=== PATIENT | male | born 1970 | race Caucasian/White ===

== ENCOUNTER 2017-09-11 22:19 | Inpatient (IN) | payer SELFPAY ==
[~2017-09-11] VITALS: Ht 175.3 cm; Wt 95.0 kg
[2017-09-11 22:21] VITALS: O2SAT 98
[2017-09-11 22:46] LABS: AUTOMATED NEUTROPHIL # 2.7 TH/MM3 (1.8-7.7); BASOPHIL % 0.5 % (0.0-2.0); EOSINOPHIL # 0.1 TH/MM3 (0-0.4); EOSINOPHIL % 1.6 % (0.0-4.0); HEMATOCRIT 42.2 % (39.0-51.0); HEMOGLOBIN 14.7 GM/DL (13.0-17.0); LYMPH % 53.4 % (9.0-44.0); MEAN CORPUSCULAR HEMOGLOBIN 33.1 PG (27.0-34.0); MEAN CORPUSCULAR HGB CONC 34.8 % (32.0-36.0); MEAN PLATELET VOLUME 9.3 FL (7.0-11.0); MONO % 8.6 % (0.0-8.0); MONOCYTE # 0.7 TH/MM3 (0-0.9); NEUT % 35.9 % (16.0-70.0); PLATELET COUNT 131 TH/MM3 (150-450); RED BLOOD COUNT 4.44 MIL/MM3 (4.50-5.90); RED CELL DISTRIBUTION WIDTH 12.9 % (11.6-17.2); WHITE BLOOD COUNT 7.5 TH/MM3 (4.0-11.0)
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
[2017-09-11 22:50] LABS: PROTHROMBIN TIME - PATIENT 10.4 SEC (9.8-11.6)
[2017-09-11] MEDS ORDERED: IOHEXOL 350 MG/ML 10 ML VIAL (for RAD DIAG) IVCONTRAST ONE (22:52)
[2017-09-11 23:05] VITALS: BP 127/70; PULSE 80; RESP 18; TEMP 98.1; O2SAT 100
--- NOTE | 2017-09-11 23:09 | PD ---
HPI Chief Complaint: Trauma (Alert) Time Seen by Provider: 22:25 Allergies-Medications (Allergen,Severity, Reaction): Coded Allergies: No Known Allergies (Verified Allergy, Unknown, 09/11/17) Reported Meds & Prescriptions Reported Meds & Active Scripts Active No Active Prescriptions or Reported Medications Data Data Last Documented VS Vital Signs Date Time Temp Pulse Resp B/P (MAP) Pulse Ox O2 Delivery O2 Flow Rate FiO2 09/11/17 23:05 100 Nasal Cannula 2.00 09/11/17 23:05 98.1 80 18 127/70 (89) Orders Orders I-Stat Profile (09/11/17 22:25) Complete Blood Count With Diff (09/11/17 22:25) Prothrombin Time / Inr (Pt) (09/11/17 22:25) Act Partial Throm Time (Ptt) (09/11/17 22:25) Type And Screen (09/11/17 22:25) Chest, Single Ap (09/11/17 22:25) Ct Thorax/ Chest W Iv Contrast (09/11/17 22:25) Iv Access Insert/Monitor (09/11/17 22:25) Ecg Monitoring (09/11/17 22:25) Oximetry (09/11/17 22:25) Oxygen Administration (09/11/17 22:25) Ed Poc Ultrasound (09/11/17 22:25) Iohexol 350 Inj (Omnipaque 350 Inj) (09/11/17 22:52) Admit Order (Ed Use Only) (09/11/17 ) Labs Laboratory Tests Test 09/11/17 22:25 White Blood Count 7.5 TH/MM3 Red Blood Count 4.44 MIL/MM3 Hemoglobin 14.7 GM/DL Bedside Hemoglobin 13.9 G/DL Hematocrit 42.2 % Bedside Hematocrit 41.0 % Mean Corpuscular Volume 95.0 FL Mean Corpuscular Hemoglobin 33.1 PG Mean Corpuscular Hemoglobin Concent 34.8 % Red Cell Distribution Width 12.9 % Platelet Count 131 TH/MM3 Mean Platelet Volume 9.3 FL Neutrophils (%) (Auto) 35.9 % Lymphocytes (%) (Auto) 53.4 % Monocytes (%) (Auto) 8.6 % Eosinophils (%) (Auto) 1.6 % Basophils (%) (Auto) 0.5 % Neutrophils # (Auto) 2.7 TH/MM3 Lymphocytes # (Auto) 4.0 TH/MM3 Monocytes # (Auto) 0.7 TH/MM3 Eosinophils # (Auto) 0.1 TH/MM3 Basophils # (Auto) 0.0 TH/MM3 CBC Comment DIFF FINAL Differential Comment Prothrombin Time 10.4 SEC Prothromb Time International Ratio 1.0 RATIO Activated Partial Thromboplast Time 22.1 SEC Bedside Sodium 142 MMOL/L Bedside Potassium 3.2 MMOL/L Bedside Chloride 102 MMOL/L Bedside Blood Urea Nitrogen 14 MG/DL Bedside Creatinine 1.1 MG/DL Bedside Glucose 112 MG/DL MDM Scripts No Active Prescriptions or Reported Meds Jaswinder Tejeda MD Sep 11, 2017 23:09
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
[2017-09-11] MEDS ORDERED: SODIUM CHLORIDE 0.9% FLUSH 10 ML FLUSH IV FLUSH PRN (23:15)
[2017-09-11] MEDS ORDERED: Post-op Orders (for Pharmacy) XX ONE (23:15)
[2017-09-11] MEDS ORDERED: ONDANSETRON HCL 4 MG/2 ML VIAL IV PUSH PRN (23:15)
[2017-09-11] MEDS ORDERED: NALOXONE HCL 0.4 MG/ML AMP IV PUSH PRN (23:15)
[2017-09-11] MEDS ORDERED: oxyCODONE/ACETAMINOPHEN 5 MG/325 MG TAB PO PRN (23:15)
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
[2017-09-12] MEDS: SODIUM CHLOR 0.9% 1000 ML INJ 1,000 ML IV SCH ×2 (00:45→09:08)
[2017-09-12 00:58] VITALS: BP 116/66; PULSE 67; RESP 18; TEMP 96.4; O2SAT 92
[2017-09-12 04:13] VITALS: BP 123/62; PULSE 62; RESP 19; TEMP 97.1; O2SAT 96
[2017-09-12] MEDS ORDERED: COLA100C5 PO (07:13)
[2017-09-12 08:00] VITALS: BP 131/59; PULSE 71; RESP 19; TEMP 96.9; O2SAT 93
[2017-09-12] MEDS ORDERED: SODIUM CHLORIDE 0.9% FLUSH 10 ML FLUSH IV FLUSH SCH (09:00)
[2017-09-12 09:41] VITALS: O2SAT 96
[2017-09-12] MEDS ORDERED: TYLE325T PO (11:07)
[2017-09-12] MEDS ORDERED: IBUP-232 PO (11:07)
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
== END 2017-09-12 12:22 | disposition home or self-care (01) | DRG 605 ==
LOC: NEPI 22:19 → NEDA 23:09 → OBSVTOIN 23:13 → EDBD 23:13 → N06B 09-12 00:31
PROVIDERS: ADMIT Surgery; ATTEND Surgery
PROC: 3E0F7GC Introduction of Other Therapeutic Substance into Respiratory Tract, Via Natural or Artificial Opening (ICD-10-PCS; principal; 2017-09-11)
DX: S21.111A Laceration without foreign body of right front wall of thorax without penetration into thoracic cavity, initial encounter (principal); S10.93XA Contusion of unspecified part of neck, initial encounter; Y93.9 Activity, unspecified; Z72.0 Tobacco use; X99.9XXA Assault by unspecified sharp object, initial encounter
CPT/HCPCS: 71045; 71260; 80048; 85025; 85610; 85730; 86850; 86900; 86901; 94150; J7030; Q9967

== ENCOUNTER 2017-10-28 13:00 | Emergency (ER) | payer SELFPAY ==
[~2017-10-28 13:00] MED LIST: COLA100C5 PO; IBUP-232 PO; TYLE325T PO
[2017-10-28 13:25] VITALS: BP 170/100; PULSE 94; RESP 16; TEMP 97.9; O2SAT 95
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
[2017-10-28] MEDS ORDERED: GABA300C5 PO (16:00)
== END 2017-10-28 16:11 | disposition home or self-care (01) ==
LOC: NED 13:00 → NEPK 16:11
DX: M79.644 Pain in right finger(s) (principal); R20.2 Paresthesia of skin
CPT/HCPCS: 99283

== ENCOUNTER 2017-12-12 06:56 | Emergency (ER) | payer SELFPAY ==
[~2017-12-12] VITALS: Ht 175.3 cm; Wt 93.0 kg
[~2017-12-12 06:56] MED LIST changes: +GABA300C5 PO
[2017-12-12 07:09] VITALS: BP 131/81; PULSE 73; RESP 17; TEMP 97.7; O2SAT 96
[2017-12-12 07:20] VITALS: BP 154/88; PULSE 63; RESP 15; O2SAT 96
[2017-12-12] MEDS ORDERED: SODIUM CHLOR 0.9% 1000 ML INJ 1,000 ML IV ONE (07:34)
--- NOTE | 2017-12-12 07:39 | PD ---
HPI Chief Complaint: Neuro Symptoms/ Deficits Time Seen by Provider: 07:34 Travel History International Travel<30 days: No Contact w/Intl Traveler<30days: No Traveled to known affect area: No History of Present Illness HPI 47-year-old male patient presents to the ER today because over the last week he has noticed that he has a halo in his vision, feels like he almost has tunnel vision, and feels like he has difficulty seeing the middle peoples faces, states that this morning when he was driving to work he felt like he had a little numbness in his left upper lip area, felt like he was drooling. He denies any numbness or weakness otherwise, no trouble walking or talking, no trouble driving in the morning. He states that he has noticed the symptoms on and off but feels like the symptoms are more consistent this morning. He states he has had intermittent headaches but denies any current headache. Modifying Factors: None Associated Signs & Symptoms: Left upper lip paresthesias, halo in the vision, feels like he has tunnel vision Risk Factors: None PFSH Past Medical History Cancer: No Cardiovascular Problems: No Genitourinary: No Implanted Vascular Access Dvce: No Medical other: Yes (thrombophlebitis SEP 2017) Musculoskeletal: No Neurologic: No Reproductive: No Respiratory: No Migraines: Yes (with high iron) Past Surgical History Surgical History: No Previous Surgery Other Surgery: No Social History Alcohol Use: Yes (daily-beer) Tobacco Use: Yes Substance Use: No Allergies-Medications (Allergen,Severity, Reaction): Coded Allergies: No Known Allergies (Verified Allergy, Unknown, 12/12/17) Reported Meds & Prescriptions Reported Meds & Active Scripts Active No Active Prescriptions or Reported Medications Review of Systems Except as stated in HPI: all other systems reviewed are Neg Physical Exam Narrative GENERAL: Well-developed middle-age male patient currently in mild distress. Awake and oriented 3. SKIN: Focused skin assessment warm/dry. HEAD: Atraumatic. Normocephalic. EYES: Pupils are equal and round, reactive to light bilaterally. No scleral icterus. No injection or drainage. Extraocular movements are intact. ENT: No nasal bleeding or discharge. Mucous membranes pink and moist. NECK: Trachea midline. No JVD. Supple. CARDIOVASCULAR: Regular rate and rhythm. No murmur appreciated. RESPIRATORY: No accessory muscle use. Clear to auscultation. Breath sounds equal bilaterally. GASTROINTESTINAL: Abdomen soft, non-tender, nondistended. Hepatic and splenic margins not palpable. MUSCULOSKELETAL: No obvious deformities. No clubbing. No cyanosis. No edema. NEUROLOGICAL: Awake and alert. No obvious cranial nerve deficits. Motor grossly within normal limits. Normal speech. No pronator drift. PSYCHIATRIC: Appropriate mood and affect; insight and judgment normal. Data Data Last Documented VS Vital Signs Date Time Temp Pulse Resp B/P (MAP) Pulse Ox O2 Delivery O2 Flow Rate FiO2 12/12/17 09:19 64 18 152/70 (97) 97 Room Air 12/12/17 07:09 97.7 Orders Orders Complete Blood Count With Diff (12/12/17 07:34) Comprehensive Metabolic Panel (12/12/17 07:34) Ct Brain W/O Iv Contrast(Rout) (12/12/17 07:34) Ecg Monitoring (12/12/17 07:34) Iv Access Insert/Monitor (12/12/17 07:34) Oximetry (12/12/17 07:34) Sodium Chloride 0.9% Flush (Ns Flush) (12/12/17 07:45) Sodium Chlor 0.9% 1000 Ml Inj (Ns 1000 M (12/12/17 07:34) Mri Brain W&W/O Contrast (12/12/17 08:26) Gadodiamide Pf Inj (Omniscan Pf Inj) (12/12/17 10:11) Ed Discharge Order (12/12/17 10:16) Labs Laboratory Tests Test 12/12/17 07:40 White Blood Count 6.1 TH/MM3 Red Blood Count 5.30 MIL/MM3 Hemoglobin 17.5 GM/DL Hematocrit 50.1 % Mean Corpuscular Volume 94.5 FL Mean Corpuscular Hemoglobin 33.1 PG Mean Corpuscular Hemoglobin Concent 35.0 % Red Cell Distribution Width 12.3 % Platelet Count 150 TH/MM3 Mean Platelet Volume 10.0 FL Neutrophils (%) (Auto) 47.8 % Lymphocytes (%) (Auto) 41.5 % Monocytes (%) (Auto) 7.7 % Eosinophils (%) (Auto) 2.4 % Basophils (%) (Auto) 0.6 % Neutrophils # (Auto) 2.9 TH/MM3 Lymphocytes # (Auto) 2.5 TH/MM3 Monocytes # (Auto) 0.5 TH/MM3 Eosinophils # (Auto) 0.1 TH/MM3 Basophils # (Auto) 0.0 TH/MM3 CBC Comment DIFF FINAL Differential Comment Blood Urea Nitrogen 9 MG/DL Creatinine 1.18 MG/DL Random Glucose 186 MG/DL Total Protein 7.2 GM/DL Albumin 3.9 GM/DL Calcium Level 8.5 MG/DL Alkaline Phosphatase 69 U/L Aspartate Amino Transf (AST/SGOT) 22 U/L Alanine Aminotransferase (ALT/SGPT) 37 U/L Total Bilirubin 0.4 MG/DL Sodium Level 142 MEQ/L Potassium Level 3.7 MEQ/L Chloride Level 104 MEQ/L Carbon Dioxide Level 27.5 MEQ/L Anion Gap 11 MEQ/L Estimat Glomerular Filtration Rate 66 ML/MIN [facility] Medical Decision Making Medical Screen Exam Complete: Yes Emergency Medical Condition: Yes Medical Record Reviewed: Yes Interpretation(s) Laboratory Tests Test 12/12/17 07:40 Hemoglobin 17.5 GM/DL (13.0-17.0) Random Glucose 186 MG/DL (74-106) Estimat Glomerular Filtration Rate 66 ML/MIN (>89) Last 24 hours Impressions Brain MRI 12/12/17 0826 Signed Impressions: Service Date/Time: Tuesday, December 12, 2017 09:23 - CONCLUSION: Minimal periventricular white matter changes that could be evidence for demyelinating process. No parenchymal hemorrhage or acute infarction. Sai Stephen MD FACR Head CT 12/12/17 0734 Signed Impressions: Service Date/Time: Tuesday, December 12, 2017 07:52 - CONCLUSION: No acute intracranial abnormality is identified. Jv Lion MD Differential Diagnosis Atypical migraine headache versus CVA versus acute intracranial processes versus anxiety Narrative Course Lab work is fairly unremarkable. He has no meningeal signs. I do not see obvious focal neurological deficits in the ER. However, considering his symptoms, CAT scan was ordered for further evaluation, did not see any obvious signs of CVA or masses. I have discussed the case with radiologist regarding further evaluation of the area of the optic chiasm and he states that the patient can get a regular MRI with and without contrast for initial evaluation. The MRI did not show any signs of other acute processes at this point. On reevaluation at 10 AM, patient is resting comfortably, and when he wakes up, states that his symptoms are subsiding. At this point, he also asked me if getting stressed out could be a cause, he states that he has been more stressed recently. It is possible that stress could be contributing. At this point, I do not see any signs of focal deficits and my plan would be to release him with close follow-up to primary care doctor. Return for worsening in symptoms as necessary. The plan has been discussed with him he states understanding. Diagnosis Primary Impression: Tunnel vision Additional Impression: Facial paresthesia Scripts No Active Prescriptions or Reported Meds Disposition: 01 DISCHARGE HOME Condition: Stable Torin Willoughby MD December 12, 2017 07:39
[2017-12-12] MEDS ORDERED: SODIUM CHLORIDE 0.9% FLUSH 10 ML FLUSH IVF PRN (07:45)
[2017-12-12 07:46] VITALS: O2SAT 96
[2017-12-12 07:52] LABS: AUTOMATED NEUTROPHIL # 2.9 TH/MM3 (1.8-7.7); BASOPHIL % 0.6 % (0.0-2.0); EOSINOPHIL # 0.1 TH/MM3 (0-0.4); EOSINOPHIL % 2.4 % (0.0-4.0); HEMATOCRIT 50.1 % (39.0-51.0); HEMOGLOBIN 17.5 GM/DL (13.0-17.0); LYMPH % 41.5 % (9.0-44.0); LYMPHOCYTE # 2.5 TH/MM3 (1.0-4.8); MEAN CELL VOLUME 94.5 FL (80.0-100.0); MEAN CORPUSCULAR HEMOGLOBIN 33.1 PG (27.0-34.0); MONO % 7.7 % (0.0-8.0); MONOCYTE # 0.5 TH/MM3 (0-0.9); NEUT % 47.8 % (16.0-70.0); PLATELET COUNT 150 TH/MM3 (150-450); RED CELL DISTRIBUTION WIDTH 12.3 % (11.6-17.2); WHITE BLOOD COUNT 6.1 TH/MM3 (4.0-11.0)
[2017-12-12 08:09] LABS: ALBUMIN 3.9 GM/DL (3.4-5.0); ALT (GPT) 37 U/L (12-78); AST (GOT) 22 U/L (15-37); BICARBONATE 27.5 MEQ/L (21.0-32.0); BLOOD UREA NITROGEN 9 MG/DL (7-18); CALCIUM 8.5 MG/DL (8.5-10.1); CHLORIDE 104 MEQ/L (98-107); CREATININE 1.18 MG/DL (0.60-1.30); GLOMERULAR FILTRATION RATE 66 ML/MIN (>89); GLUCOSE,RANDOM 186 MG/DL (74-106); SODIUM (NA) 142 MEQ/L (136-145)
--- NOTE | 2017-12-12 08:10 | RADRPT ---
EXAM DATE/TIME: 12/12/2017 07:52 [facility] COMPARISON: No previous studies available for comparison. INDICATIONS : Visual disturbance for several days, lip numbness today RADIATION DOSE: 56.35 CTDIvol (mGy) MEDICAL HISTORY : None SURGICAL HISTORY : None. ENCOUNTER: Initial ACUITY: 2 days PAIN SCALE: 0/10 LOCATION: cranial TECHNIQUE: Multiple contiguous axial images were obtained of the head. Using automated exposure control and adj ustment of the mA and/or kV according to patient size, radiation dose was kept as low as reasonably a chievable to obtain optimal diagnostic quality images. DICOM format image data is available electro nically for review and comparison. FINDINGS: CEREBRUM: The ventricles are normal. No evidence of midline shift, mass lesion, hemorrhage or acute infarction . No extra-axial fluid collections are seen. POSTERIOR FOSSA: The cerebellum and brainstem demonstrate no acute finding. The 4th ventricle is midline. The cerebe llopontine angle is unremarkable. EXTRACRANIAL: Visualized sinuses are clear. SKULL: The calvaria is intact. No evidence of skull fracture. CONCLUSION: No acute intracranial abnormality is identified. Jv Lion MD on December 12, 2017 at 8:06 Board Certified Radiologist. This report was verified electronically.
[2017-12-12 08:12] LABS: ALKALINE PHOSPHATASE 69 U/L (45-117); TOTAL BILIRUBIN ADULT 0.4 MG/DL (0.2-1.0); TOTAL PROTEIN 7.2 GM/DL (6.4-8.2)
[2017-12-12 09:19] VITALS: BP 152/70; PULSE 64; RESP 18; O2SAT 97
--- NOTE | 2017-12-12 10:07 | RADRPT ---
EXAM DATE/TIME: 12/12/2017 09:23 [facility] COMPARISON: No previous studies available for comparison. INDICATIONS : Cephalgia. Tunnel vision with left sided facial numbness. CONTRAST: 19 cc Omniscan (gadodiamide) IV MEDICAL HISTORY : None. SURGICAL HISTORY : None. ENCOUNTER: Initial ACUITY: 2 day PAIN SCORE: 3/10 LOCATION: cranial TECHNIQUE: Multiplanar, multisequence MRI of the brain was performed both prior to and following the administrat ion of paramagnetic contrast. FINDINGS: There is no new streaky diffusion to suggest significant acute ischemic event. There are minimal iso lated periventricular white matter changes present. These are nonspecific but could read represent d emyelinating process. Ventricle size is appropriate. There is no parenchymal hemorrhage. There is no extra-axial fluid. Midline structures are intact. The posterior fossa appears normal Following intravenous administration of gadolinium there is no abnormal contrast enhancement evident. CONCLUSION: Minimal periventricular white matter changes that could be evidence for demyelinating process. No parenchymal hemorrhage or acute infarction. Sai Stephen MD FACR on December 12, 2017 at 10:03 Board Certified Radiologist. This report was verified electronically.
[2017-12-12] MEDS ORDERED: GADODIAMIDE PF 287 MG/ML 20 ML VIAL (for RAD MRI) IVCONTRAST ONE (10:11)
[2017-12-12 10:35] VITALS: BP 157/84
--- NOTE | 2017-12-12 17:35 | EKG ---
Date Performed: 12/12/2017 Time Performed: 07:20:26 PTAGE: 47 years EKG: Sinus rhythm WITH SINUS ARRHYTHMIA NORMAL ECG NO PREVIOUS TRACING DOCTOR: Kary Merrill Interpretating Date/Time 12/12/2017 16:28:59
== END 2017-12-12 10:37 | disposition home or self-care (01) ==
LOC: NEPC 06:56
DX: H53.489 Generalized contraction of visual field, unspecified eye (principal); R20.2 Paresthesia of skin; R51 Headache; I49.9 Cardiac arrhythmia, unspecified; Z72.0 Tobacco use
CPT/HCPCS: 70450; 70553; 80053; 85025; 93005; 96360; 99285; A9579; J7030